=== PATIENT | female | born 1960 | race Caucasian/White ===

== ENCOUNTER → 2018-04-21 | Outpatient (CLI) | payer BC ==
[~2018-04-21] MED LIST: AMBIEN CR 12.12.5 MG PO; DESYREL 50MG50 MG PO; DITROPAN XL10 MG PO; MINOCYCLIN100 MG/CAP PO; PROZAC 20MG20 MG PO; REQUIP 0.5MG0.5 MG PO; SYNTHROID0.075 MG/T PO; TOPAMAX 25MG25 M1 PO; TOPAMAX50 MG PO; ZOCOR 20MG20 MG PO; ZYRTEC 10MG10 MG PO
== END ==
LOC: MC.RAD 12:52
DX: Z12.31 Encounter for screening mammogram for malignant neoplasm of breast (principal)